=== PATIENT | female | born 1955 | race Caucasian/White ===

== ENCOUNTER 2017-05-20 07:09 | Outpatient (CLI) | payer OTHER | END 2017-05-20 07:25 | disposition home or self-care (01) | LOC: LAB 07:09 | DX: D50.9 Iron deficiency anemia, unspecified (principal); E83.51 Hypocalcemia; E03.8 Other specified hypothyroidism; D68.8 Other specified coagulation defects; N39.0 Urinary tract infection, site not specified; E78.00 Pure hypercholesterolemia, unspecified; R82.79 Other abnormal findings on microbiological examination of urine; Z13.1 Encounter for screening for diabetes mellitus ==

== ENCOUNTER 2017-05-20 07:53 | Outpatient (CLI) | payer OTHER | END 2017-05-20 07:59 | disposition home or self-care (01) | LOC: RAD 07:53 | DX: Z13.6 Encounter for screening for cardiovascular disorders (principal) ==

== ENCOUNTER 2017-06-06 08:39 | Outpatient (CLI) | payer OTHER | END 2017-06-06 09:05 | disposition home or self-care (01) | LOC: LAB 08:39 | DX: I10 Essential (primary) hypertension (principal); M54.5 Low back pain; Z01.810 Encounter for preprocedural cardiovascular examination; E03.8 Other specified hypothyroidism; D25.2 Subserosal leiomyoma of uterus; D25.9 Leiomyoma of uterus, unspecified; N39.0 Urinary tract infection, site not specified ==

== ENCOUNTER 2020-06-14 | Outpatient (CLI) | payer OTHER | END 2020-06-14 10:00 | disposition home or self-care (01) | LOC: PPH VACUNA | PROVIDERS: ATTEND Emergency Medicine Pediatric Emergency Medicine | DX: Z23 Encounter for immunization (principal) ==

== ENCOUNTER → 2020-07-05 | Outpatient (CLI) | payer OTHER | END | disposition home or self-care (01) | LOC: PPH VACUNA 09:55 | PROVIDERS: ATTEND Emergency Medicine Pediatric Emergency Medicine | DX: Z23 Encounter for immunization (principal) ==

== ENCOUNTER 2021-11-25 07:09 | Outpatient (CLI) | payer OTHER | END 2021-11-25 07:14 | disposition home or self-care (01) | LOC: RX STUDY 07:09 | PROVIDERS: ATTEND Otolaryngology | DX: R13.14 Dysphagia, pharyngoesophageal phase (principal); K21.9 Gastro-esophageal reflux disease without esophagitis ==